=== PATIENT | male | born 1980 | race Two or more races ===

== ENCOUNTER 2023-08-22 13:47 | Emergency (ER) | payer OTHER ==
[~2023-08-22] VITALS: Ht 170.2 cm; Wt 143.3 kg
[2023-08-22] MEDS ORDERED: DEXAMETHASONE SODIUM PHOSPHATE 4 MG/ML VIAL IM STA (17:48)
[2023-08-22] MEDS ORDERED: OxyCODONE HCL/APAP UD (PERCOCET) PO STA (17:49)
== END 2023-08-22 19:11 | disposition home or self-care (01) ==
LOC: ER 13:47
DX: M25.561 Pain in right knee (principal); Z88.8 Allergy status to other drugs, medicaments and biological substances